=== PATIENT | female | born 1960 | race Caucasian/White ===

== ENCOUNTER → 2017-08-13 | Outpatient (CLI) | payer BC | LOC: RAD 02:58 | DX: Z12.31 Encounter for screening mammogram for malignant neoplasm of breast (principal) ==

== ENCOUNTER → 2018-08-14 | Outpatient (CLI) | payer BC | LOC: RAD 02:47 | DX: Z12.31 Encounter for screening mammogram for malignant neoplasm of breast (principal) ==

== ENCOUNTER → 2019-08-20 | Outpatient (CLI) | payer BC | LOC: RAD 10:56 | DX: Z12.31 Encounter for screening mammogram for malignant neoplasm of breast (principal) ==

== ENCOUNTER → 2019-10-04 | Outpatient (CLI) | payer BC ==
[~2019-10-04] MED LIST: COLLAGEN PLUS1 EACH PO; FISH OIL 1,0001 EAC9 PO; [UNRECOGNIZED DRUG - OTHER] PO
== END ==
LOC: NUC 10-01 07:42
DX: M85.80 Other specified disorders of bone density and structure, unspecified site (principal); Z78.0 Asymptomatic menopausal state; N91.2 Amenorrhea, unspecified

== ENCOUNTER → 2019-10-06 | Outpatient (CLI) | payer BC ==
[~2019-10-06] VITALS: Ht 167.6 cm; Wt 68.9 kg
--- NOTE | ~2019-10-06 | P ---
[facility] [place] [address] PROCEDURE REPORT Name: CARLY CLAY Room #: REG [facility].#: [id number] Admission: 10/06/19 Attend Phys: Maximo Burns Discharge: Date of : 62 Report #: [id number] THIS REPORT FOR: //name// CC: Maximo Newton MD DATE OF SERVICE: 10/06/2019 PROCEDURE PERFORMED: Colonoscopy with biopsies. HISTORY OF PRESENT ILLNESS: The patient is a 58-year-old female who presents today for a routine 5-year screening colonoscopy. She has a family history of colon cancer in 2 uncles. Denies any significant symptoms. DESCRIPTION OF PROCEDURE: The risks and benefits of the procedure were explained to the patient, those risks including but not limited to bleeding, perforation and the risk of sedation. She understood these risks and gave informed consent. Sedation was given using propofol per anesthesia. Next, a digital rectal exam was initially performed, which was normal. Next, using a standard Olympus colonoscope, the scope was placed in the patient's anus and advanced under direct vision to the cecum. The overall prep was excellent. The cecum and ileocecal valve were normal in appearance. In the ascending colon, a 4-mm sessile polyp was noted. This was removed with cold forceps, otherwise normal. The transverse, descending and sigmoid colon were all normal. The rectal mucosa was normal. On retroflexion, no abnormalities were noted. Random biopsies were obtained today to rule out the possibility of microscopic colitis. The scope was then withdrawn and the procedure terminated. The patient tolerated the procedure well. IMPRESSION: 1. Small colonic polyp. 2. Otherwise, normal colonoscopy. RECOMMENDATIONS: 1. Await biopsy results. 2. Repeat colonoscopy in 5 years. Thank you for allowing me to participate in her care. By: [id number] Maximo Stanley MD /nt
--- NOTE | 2019-10-07 15:07 | PATH ---
[facility] [place] [address] [address] [place] [address] PATHOLOGY RPT PROCEDURE Name: MARISOL CLAY Room #: REG [facility] M.R.#: [id number] Admission: 10/06/19 Date of : 62 Discharge: Report #: [id number] Path Case #: [id number] [facility] Accession Number: [id number] . 01 Material submitted: . PART A: colon - POLYP AT ASCENDING COLON. Modifiers: ascending PART B: colon - RANDOM COLON BX . 01 Clinical history: . Pre-op diagnosis: Family history of colon cancer Post-op diagnosis: Colon polyp B: R/O microscopic colitis . 02 Diagnosis: A. Polyp, at ascending colon, endoscopic biopsy: - Hyperplastic polyp. - Negative for dysplasia. . B. Large intestine mucosa, random colon to rule out microscopic colitis, endoscopic biopsy: - Nonspecific reactive changes. - Negative for active colitis. - Negative for microscopic colitis. - Negative for dysplasia or malignancy. . (IUV:hand i thermal cutter; 10/07/2019) MBR 10/07/2019 1236 Local . 02 Electronically signed: . Jessica Leonardo MD, Pathologist NPI- [id number] . 01 Gross description: . A. The specimen is received in formalin, labeled "Marisol Clay, polyp at ascending colon". Received are three segments of pale aviles soft tissue ranging in size from 0.2 to 0.4 cm in maximum dimensions. The specimen is submitted entirely in cassette A1. . B. The specimen is received in formalin, labeled "Marisolvinny Clay, random colon biopsy, R/O microscopic colitis". Received are five segments of pale aviles soft tissue ranging in size from 0.4 to 0.5 cm in maximum dimensions. The specimen is submitted entirely in cassette B1. (CAA; 10/06/2019) QA/QA 10/06/2019 1855 Local . 02 Pathologist provided ICD-10: K63.5, K63.[address] [address] PATHOLOGY RPT PROCEDURE Name: MARISOL CLAY Room #: REG [facility].#: [id number] Admission: 10/06/19 Date of : 62 Discharge: Report #: [id number] Path Case #: [id number] . 02 [facility] . [id number], [id number] Specimen Comment: A courtesy copy of this report has been sent to [phone], [phone] Specimen Comment: [phone] Specimen Comment: Report sent to and Performed at: [address], [place], [place] [id number] MD Bruce Villegas MD Phone: [phone] Performed at: [address] [id number] MD Jessica Leonardo MD Phone: [phone]
== END | disposition home or self-care (01) ==
LOC: GI 08:57
DX: Z12.11 Encounter for screening for malignant neoplasm of colon (principal); Z80.0 Family history of malignant neoplasm of digestive organs; K63.5 Polyp of colon; K63.9 Disease of intestine, unspecified; F41.1 Generalized anxiety disorder; Z98.890 Other specified postprocedural states; Z79.899 Other long term (current) drug therapy; Z88.8 Allergy status to other drugs, medicaments and biological substances
CPT/HCPCS: 62110; 62900

== ENCOUNTER → 2020-08-21 | Outpatient (CLI) | payer BC, OTHER | LOC: RAD 13:12 | PROVIDERS: ATTEND Family Medicine | DX: Z12.31 Encounter for screening mammogram for malignant neoplasm of breast (principal) ==

== ENCOUNTER → 2021-08-28 | Outpatient (CLI) | payer BC, OTHER | LOC: BC 14:15 | PROVIDERS: ATTEND Family Medicine | DX: Z12.31 Encounter for screening mammogram for malignant neoplasm of breast (principal); N64.89 Other specified disorders of breast ==